=== PATIENT | female | born 1955 | race Hispanic/Latino ===

== ENCOUNTER → 2018-09-13 | Outpatient (CLI) | payer MEDICARE ==
--- NOTE | 2018-09-13 16:27 | Diagnostic Imaging Report ---
Frontal and lateral views of the chest. HISTORY: Chest pain, CARDIAC CLEARANCE COMPARISON: Chest radiograph the January 03, 2016 DISCUSSION: Lungs: Low lung volumes result in bibasilar vascular crowding, accentuation of the pulmonary interstitial markings, central pulmonary vasculature, and the cardiac silhouette. Allowing for these limitations, the findings are as follows: Mild left basilar atelectasis versus scarring. Stable calcified granulomas, the largest at the periphery of the mid left lung. No evidence of a consolidative pneumonia or pulmonary alveolar edema. Pleura: No pleural effusion or pneumothorax. Heart and mediastinum: The cardiomediastinal silhouette appears unremarkable. Bones: Mild accentuation of the thoracic kyphosis and the level minimal to mild degenerative changes. Other: Metallic clips in the right upper quadrant of the abdomen are compatible with prior cholecystectomy. IMPRESSION: 1. No acute radiographic abnormality. 2. Mild left basilar atelectasis versus scarring. Signed by: Dr. Aj Granados D.O., M.M.M. on 09/13/2018 4:23 PM
== END ==
LOC: RAD 15:24
PROVIDERS: ATTEND Family Medicine
DX: Z01.810 Encounter for preprocedural cardiovascular examination (principal)
CPT/HCPCS: 71046